=== PATIENT | female | born 1960 | race Two or more races ===

== ENCOUNTER 2016-10-07 04:29 | Emergency (ER) | payer OTHER ==
[~2016-10-07] VITALS: Ht 172.7 cm; Wt 95.3 kg
--- NOTE | 2016-10-07 04:47 | NUR ---
PT BIB SELF WITH SON. COMPLAINS OF TOOTH PAIN 9/10 SINCE 12 AM. PT FACE RED AND SWOLLEN ON RIGHT SIDE. NAUSEA AND VOMITING X4 SINCE 12AM. PT AMBULATORY. GOWNED PT. AWAITING MD ORDER.
[2016-10-07] MEDS ORDERED: KETOROLAC TROMETHAMINE INJ 30 MG/ML VIAL IV ONE (05:00)
[2016-10-07] MEDS ORDERED: methylPREDNISolone SOD SUCC 125 MG/2ML VIAL IV ONE (05:00)
[2016-10-07] MEDS ORDERED: CLINDAMYCIN 600 MG in IV D5W 100 ML IV ONE (05:00)
[2016-10-07] MEDS ORDERED: IV D5W 100 ML IV ONE (05:07)
[2016-10-07] MEDS ORDERED: KETOROLAC TROMETHAMINE 15 MG/ML VIAL ONE (05:07)
[2016-10-07] MEDS ORDERED: CLINDAMYCIN 900 MG/6 ML VIAL ONE (05:07)
[2016-10-07] MEDS ORDERED: IV SET PRIMARY PUMP SET 1 EA INFUS.SET MC ONE ×2 (05:07→05:17)
[2016-10-07] MEDS ORDERED: methylPREDNISolone SOD SUCC 125 MG/2ML VIAL ONE (05:07)
--- NOTE | 2016-10-07 05:16 | NUR ---
started a saline lock on the lac g20, blood drawn and sent to lab.
[2016-10-07] MEDS ORDERED: IV NS 0.9% 1,000 ML ONE (05:17)
[2016-10-07 05:20] LABS: BASOPHILS % (AUTO) 0.2 % (0.0-2.0); EOSINOPHILS # (AUTO) 0.1 /CMM (0.0-0.7); EOSINOPHILS % (AUTO) 1.3 % (0.0-6.0); HEMATOCRIT 34 % (33-45); HEMOGLOBIN 10.8 g/dL (11.5-14.8); LYMPHOCYTES # (AUTO) 0.6 /CMM (0.8-4.8); MEAN CORPUSCULAR HEMOGLOBIN 19 PG (26.0-33.0); MEAN CORPUSCULAR HGB CONC 32 g/dl (31.0-36.0); MEAN CORPUSCULAR VOLUME 60 fL (82-100); MONOCYTES # (AUTO) 0.5 /CMM (0.1-1.30); MONOCYTES % (AUTO) 5.1 % (2.0-12.0); NEUTROPHILS # (AUTO) 8.3 /CMM (1.8-8.9); NEUTROPHILS % (AUTO) 87.4 % (43.0-81.0); PLATELET COUNT (AUTO) 207 /CMM (150-450); RDW COEFFICIENT OF VARIATION 17.1 (11.5-15.0); RED BLOOD CELL COUNT(AUTO) 5.62 MIL/uL (4.0-5.2); WHITE BLOOD COUNT (AUTO) 9.6 K/uL (4.3-11.0)
--- NOTE | 2016-10-07 05:26 | NUR ---
medicated patient as ordered by Dr Sanchez.
[2016-10-07] MEDS ORDERED: IV NS 0.9% 1,000 ML BAG IV ONE (05:30)
[2016-10-07 05:31] LABS: CALCIUM, SERUM 9.1 mg/dL (8.5-10.1); CREATININE 0.9 mg/dL (0.6-1.3); POTASSIUM 3.8 mmol/L (3.5-5.1)
[2016-10-07] MEDS ORDERED: IV NS 0.9% 250 ML IV ONE (05:43)
[2016-10-07] MEDS ORDERED: IOHEXOL-300 100 ML VIAL IV ONE (05:43)
--- NOTE | 2016-10-07 06:00 | NUR ---
patient to ct.
--- NOTE | 2016-10-07 07:02 | NUR ---
Report given to Ron MARCUS for malika.
--- NOTE | 2016-10-07 08:28 | NUR ---
DR NJ AT BEDSIDE FOR REEVAL
[2016-10-07 08:39] VITALS: BP 133/68
--- NOTE | 2016-10-07 09:37 | NUR ---
Patient does not wish to proceed with medical care recommended by Dr. NJ. Patient given information related to possible complications, up to and including , which could occur as a result of leaving the hospital at this time. Patient verbalizes understanding of risks involved due to leaving against medical advice. Patient has signed AMA form.
--- NOTE | 2016-10-07 09:37 | NUR ---
IV removed. Catheter intact and site benign. Pressure and 4x4 applied to site. No bleeding noted.
== END 2016-10-07 09:45 | disposition left against medical advice (07) ==
LOC: ER 04:29
DX: M27.2 Inflammatory conditions of jaws (principal); L03.211 Cellulitis of face; K04.7 Periapical abscess without sinus; I10 Essential (primary) hypertension; K21.9 Gastro-esophageal reflux disease without esophagitis; E11.9 Type 2 diabetes mellitus without complications
CPT/HCPCS: 36415; 70487; 80048; 85025; 96365; 96375; 99285; A4606; J1885; J2930; J3490; J7030; J7050; J7060; Q9967; Z7610

== ENCOUNTER 2021-09-21 13:44 | Inpatient (IN) | payer MEDICAID ==
[~2021-09-21] VITALS: Ht 172.7 cm; Wt 101.2 kg
--- NOTE | 2021-09-21 14:00 | NUR ---
61 yrs female came from home c/o HIGH blood pressure chest pain satrted this morning respirtiom spont and easy pt took here medition this morning
--- NOTE | 2021-09-21 14:05 | NUR ---
seen by DR. FLOREZ
--- NOTE | 2021-09-21 14:10 | NUR ---
EKG DONE AT BED SIDE
[2021-09-21] MEDS ORDERED: OMEP20TA5 PO (14:33)
[2021-09-21] MEDS ORDERED: RANITIDINE PO (14:33)
[2021-09-21] MEDS ORDERED: AMLO-212 PO (14:33)
[2021-09-21] MEDS ORDERED: GABA-532 PO (14:33)
[2021-09-21] MEDS ORDERED: METF-440 PO (14:33)
[2021-09-21] MEDS ORDERED: LINA5TAB PO (14:33)
[2021-09-21] MEDS ORDERED: DICY10CA13 PO (14:33)
[2021-09-21 15:10] LABS: BASOPHILS % (AUTO) 0.6 % (0.0-2.0); EOSINOPHILS % (AUTO) 7.5 % (0.0-6.0); HEMATOCRIT 30 % (33-45); HEMOGLOBIN 9.4 g/dL (11.5-14.8); LYMPHOCYTES # (AUTO) 1.3 K/uL (0.8-4.8); LYMPHOCYTES % (AUTO) 19.3 % (20.0-44.0); MEAN CORPUSCULAR HGB CONC 31 g/dl (31.0-36.0); MEAN CORPUSCULAR VOLUME 58 fL (82-100); MONOCYTES # (AUTO) 0.6 K/uL (0.1-1.30); MONOCYTES % (AUTO) 8.1 % (2.0-12.0); NEUTROPHILS # (AUTO) 4.5 K/uL (1.8-8.9); NEUTROPHILS % (AUTO) 64.5 % (43.0-81.0); PLATELET COUNT (AUTO) 247 K/uL (150-450); RED BLOOD CELL COUNT(AUTO) 5.16 MIL/uL (4.0-5.2); WHITE BLOOD COUNT (AUTO) 6.9 K/uL (4.3-11.0)
--- NOTE | 2021-09-21 15:15 | NUR ---
DR. VIKKI DE LEON ABOUT BP 177/103 MMHG HR 77 B/MIN DINESES CHEST PAIN
[2021-09-21 15:31] LABS: ALANINE AMINOTRANSFERASE 15 U/L (12-78); ALBUMIN 3.4 g/dL (3.4-5.0); ALKALINE PHOSPHATASE 63 U/L (46-116); ASPARTATE AMINOTRANSFERASE 6 U/L (15-37); BILIRUBIN,DIRECT 0.1 mg/dL (0.0-0.2); BILIRUBIN,TOTAL 0.3 mg/dL (0.2-1.0); CALCIUM, SERUM 12.3 mg/dL (8.5-10.1); CARBON DIOXIDE 29 mmol/L (21-32); CHLORIDE 105 mmol/L (98-107); CREATININE 1.2 mg/dL (0.6-1.3); GLUCOSE 101 mg/dL (74-106); POTASSIUM 3.8 mmol/L (3.5-5.1); SODIUM SERUM 141 mmol/L (136-145); TOTAL PROTEIN, SERUM 8.1 g/dL (6.4-8.2); UREA NITROGEN, BLOOD 18 mg/dL (7-18)
[2021-09-21] MEDS ORDERED: ASPIRIN 325 MG TABLET ONE (15:46)
[2021-09-21] MEDS ORDERED: CLONIDINE HCL 0.1 MG TABLET ONE (15:46)
[2021-09-21] MEDS ORDERED: CLONIDINE HCL 0.1 MG TABLET PO ONE (16:00)
[2021-09-21] MEDS ORDERED: ASPIRIN 81 MG TAB.CHEW PO ONE (16:00)
--- NOTE | 2021-09-21 16:09 | NUR ---
COVED SWAB SENT TO LAB
--- NOTE | 2021-09-21 17:18 | NUR ---
closly observe pt vs respondes to tx
--- NOTE | 2021-09-21 18:30 | NUR ---
raghaveses chest pain or sob wating for room to be admited
--- NOTE | 2021-09-21 19:28 | NUR ---
David of to heydi shaw
--- NOTE | 2021-09-21 21:32 | NUR ---
FOOD OFFERED TO PATIENT, TOLERATING WELL. VSS
--- NOTE | 2021-09-21 22:05 | NUR ---
PT AMBULATORY TO RESTROOM WITH STEADY GAIT. ADLS DONE
--- NOTE | 2021-09-21 22:16 | NUR ---
RECEIVED VERBAL ORDERS FROM DR. BAXTER. VIA PHONE CALL. SEE PHYSICIAN'S ORDER SHEET FORM
[2021-09-21] MEDS ORDERED: AMLODIPINE BESYLATE 5 MG TABLET ONE (23:26)
--- NOTE | 2021-09-21 23:28 | NUR ---
BP 169 / 101. HR 64. RECEIVED VERBAL ORDERS FROM DR. BAXTER FOR AMLODIPINE 5MG PO. ADMINISTERED AND WILL REASSESS BP IN 30 MINUTES. Addendum: 09/21/21 at 2330 by JUNAID AMLODIPINE 5MG PO. BP 169 / 101. HR 64. RECEIVED VERBAL ORDERS FROM DR. BAXTER FOR AMLODIPINE 5MG PO. ADMINISTERED AND WILL REASSESS BP IN 30 MINUTES.
--- NOTE | 2021-09-22 | NUR ---
PT ON NPO DIET EXCEPT MEDS PER DR. BAXTER VERBAL ORDER UNTIL FURTHER ORDER.
--- NOTE | 2021-09-22 04:37 | NUR ---
TROPONIN @ 0200 Q4H X2 MISSED. NOT ABLE TO PUT ORDERS IN UNDER DR. BAXTER'S NAME. LAB AND CHARGE NURSE AWARE.
--- NOTE | 2021-09-22 07:25 | NUR ---
RECIVED PT FROM SAV MARCUS pt asleepy no chest pain
[2021-09-22] MEDS ORDERED: IOHEXOL-350 100 ML VIAL IV ONE ×2 (07:29→12:56)
[2021-09-22] MEDS ORDERED: IV NS 0.9% 250 ML IV ONE ×2 (07:29→12:57)
[2021-09-22] MEDS ORDERED: CT SWABBABLE VALVE TRANS SET 1 EA INFUS.SET MC ONE ×2 (07:29→12:57)
--- NOTE | 2021-09-22 07:47 | NUR ---
TO CAT VIA KENNY LOPEZ NPO
--- NOTE | 2021-09-22 10:27 | NUR ---
ROEL WH[facility] [phone] REQUESTING FACE SHEET TO [phone] OR [phone].
--- NOTE | 2021-09-22 10:44 | NUR ---
kalli for telmetry be
--- NOTE | 2021-09-22 11:25 | NUR ---
DR. SEYMOUR HERE SEE AND EXAMIN PT ORDER WAS GIVEN
[2021-09-22] MEDS ORDERED: FUROSEMIDE 100 MG/10 ML VIAL IV ONE (11:30)
[2021-09-22] MEDS ORDERED: FUROSEMIDE 100 MG/10 ML VIAL ONE (11:54)
[2021-09-22] MEDS ORDERED: AMLODIPINE BESYLATE 5 MG TABLET ONE (11:54)
[2021-09-22 12:15] LABS: THYROID STIMULATING HORMONE 1.626 uIU/mL (0.358-3.74)
[2021-09-22] MEDS: AMLODIPINE BESYLATE 5 MG TABLET PO SCH (12:17)
[2021-09-22] MEDS: LINAGLIPTIN 5 MG TABLET PO SCH (12:26)
--- NOTE | 2021-09-22 12:50 | NUR ---
TO CT SCAN OF HEART ( ANGO ) GRAM
[2021-09-22] MEDS ORDERED: NITROGLYCERIN 0.4 MG/TAB BOTTLE ONE (12:57)
[2021-09-22] MEDS ORDERED: METOPROLOL TARTRATE INJ 5 MG/5 ML AMPUL ONE (12:57)
[2021-09-22] MEDS ORDERED: NITROGLYCERIN 0.4 MG/TAB BOTTLE SL ONE (13:00)
--- NOTE | 2021-09-22 13:04 | NUR ---
report given to Marianela MARCUS to continue care.
--- NOTE | 2021-09-22 13:05 | NUR ---
RN NOTES RECEIVED REPORT FROM ER BY TIM AT [id number]
[2021-09-22] MEDS: METOPROLOL TARTRATE INJ 5 MG/5 ML AMPUL IVP PRN ×4 (13:08→13:23)
--- NOTE | 2021-09-22 13:32 | NUR ---
CTA PROCEDURE DONE. PT IS AAOX4, NOT IN RESPIRATORY DISTRESS, V/S STABLE, KEPT RESTED AND COMFORTABLE. REPORT GIVEN TO AMRIT KEARNEY FOR JOSE.
--- NOTE | 2021-09-22 13:45 | NUR ---
PT BACK FROM CT HEART VIA GARNY STABLE CONDITION NO CP NO SOB
--- NOTE | 2021-09-22 13:49 | NUR ---
TO ROOM 323 - T STABLE VS STABLE CONDITION AWAKE AND ALERT
--- NOTE | 2021-09-22 13:50 | NUR ---
TRANSPORTATION PLANNING ENGINEER NOTES RECEIVED PATIENT FROM ER AT 1351. PATIENT ALERT AND ORIENTED TIMES 4. NO PAIN NOTED . NO SOB NOTED. IV SITE ON THE RIGHT AC INTACT. ABLE TO MAKE NEEDS KNOWN. ROMANIAN SPEAKER. ON TELE MONITOR READING SR. AT HER BED SIDE. ALL THE INFORMATION OBTAINED FROM . ALL NEEDS ATTENDED. BED LOCKED IN THE LOWEST POSITION. CALL LIGHT AND TABLE IN REACH. WILL CONTINUE TO MONITOR.
[2021-09-22] MEDS: GABAPENTIN 100 MG CAPSULE PO SCH ×2 (14:14→17:02)
[2021-09-22] MEDS: ACETAMINOPHEN 325 MG TABLET PO PRN (15:38)
[2021-09-22] MEDS: METOPROLOL SUCCINATE 25 MG TAB.SR.24H PO SCH (15:39)
[2021-09-22] MEDS ORDERED: METO25TA4 PO (15:47)
[2021-09-22] MEDS ORDERED: METF-440 PO (15:47)
[2021-09-22 16:20] VITALS: BP 149/63
--- NOTE | 2021-09-22 19:16 | NUR ---
EVALUATION ANALYST OPENING NOTES RECEIVED PATIENT LYING IN BED, HOB ELEVATED AT 45 DEGREES. A/O X4. SPEAKS SPANISH AND A LITTLE BIT OF [place]. ON BEDSIDE AND TRANSLATES FOR THE PATIENT. BREATHING EVEN AND NON-LABORED ON ROOM AIR. C/O OF HEADACHE. NOT IN APPARENT DISTRESS. HAS RIGHT ANTECUBITAL IV ACCESS #20G AND SALINE LOCKED. NO S/S OF INFILTRATION NOTED. SAFETY PRECAUTIONS IN PLACE. WILL CONTINUE PLAN OF CARE. Addendum: 09/22/21 at 1932 by October STORM RN ON TELE MONITOR READING SINUS RHYTHM AT 71 BPM.
--- NOTE | 2021-09-22 19:30 | NUR ---
CUFF STITCHER CLOSING NOTES PATIENT WAS SUPPOSED TO BE DISCHARGED BUT DR BAXTER CALLED AND STATED PATIENT WILL STAY IN THE HOSPITAL. PATIENT ALERT AND ORIENTED TIMES 4. NO PAIN NOTED. NO SOB NOTED. NO DISTRESS NOTED. ALL NEEDS ATTENDED. ALL DUE MEDS GIVEN ORDERED. AT HER BED SIDE. ON TELE MONITOR. SR NOTED. BED LOCKED IN THE LOWEST POSITION. CALL LIGHT AND TABLE IN REACH. WILL ENDORSE FOR JOSE.
--- NOTE | 2021-09-22 19:40 | NUR ---
ENTERTAINER & COMIC NOTES OBTAINED ORDER FROM DR. MENDOZA FOR ACCUCHECK SINCE PT HAS HX OF DM. SHE ORDERED MILD SS. NOTED AND CARRIED OUT.
[2021-09-22 20:00] VITALS: BP_SYST 127; BP_SYST 158; BP_DIAS 65; BP_DIAS 97
--- NOTE | 2021-09-22 21:18 | NUR ---
POCKET MACHINE OPERATOR NOTES RECEIVED A CALL FROM DORIAN ENGLISH) OF [facility] F/U ON PT'S CONDITION.
--- NOTE | 2021-09-22 21:22 | NUR ---
CORPORATE AFFAIRS MANAGER NOTES PT C/O PRESSURE-LIKE CHEST PAIN AND NAUSEA. DR. MENDOZA NOTIFIED. NEW ORDER NOTED AND CARRIED OUT: - ZOFRAN 6 MG IVP Q6H PRN FOR NAUSEA - MORPHINE 2 MG IVP Q4H PRN FOR PAIN
[2021-09-22] MEDS ORDERED: MORPHINE SULFATE INJ 2 MG/ML DISP.SYRIN IV PRN (21:30)
[2021-09-22] MEDS ORDERED: DEXTROSE 50%-WATER 50 ML DISP.SYRIN IV PRN (22:00)
[2021-09-22] MEDS: BLOOD SUGAR DIAGNOSTIC 1 EACH STRIP IN SCH (22:03)
[2021-09-22] MEDS: ONDANSETRON HCL/PF 4 MG/2 ML VIAL IV PRN (22:05)
--- NOTE | 2021-09-22 22:08 | NUR ---
HYPERBARIC TECHNOLOGIST NOTES PT C/O PRESSURE-LIKE PAIN ON HER CHEST AND HEADACHE. 12/14. ADMINISTER PRN MORPHINE SO4. TOLERATED WELL.
[2021-09-22 23:58] VITALS: BP 119/82
[2021-09-23 04:00] VITALS: BP 144/74
[2021-09-23] MEDS: ACETAMINOPHEN 325 MG TABLET PO PRN ×2 (06:43→19:46)
[2021-09-23] MEDS: BLOOD SUGAR DIAGNOSTIC 1 EACH STRIP IN SCH ×4 (06:43→21:35)
--- NOTE | 2021-09-23 07:09 | NUR ---
KILN FURNITURE SAW TENDER CLOSING NOTES PT LYING IN BED ASLEEP. EASY TO AROUSE. A/O X4. SPEAKS YAK[place], UNDERSTANDS A LITTLE BIT OF [place]ENI. BREATHING EVEN AND NON-LABORED ON ROOM AIR. C/O CHEST PAIN AND HEADACHE, PRN TYLENOL GIVEN. ON TELE MONITOR READING SINUS RHYTHM AT 72 BPM. HAS RIGHT ANTECUBITAL IV ACCESS #20G AND SALINE LOCKED. INTACT, PATENT AND FLUSHING. ALL NEEDS ATTENDED. KEPT DRY AND COMFORTABLE. SAFETY PRECAUTIONS IN PLACE: BED LOW AND LOCKED, SIDE RAILS UP X2, CALL LIGHT WITHIN REACH.
--- NOTE | 2021-09-23 07:30 | NUR ---
TERMINAL OPERATIONS MANAGER OPENING NOTES RECEIVED PATIENT LYING IN BED, HOB ELEVATED AT 45 DEGREES. A/O X4. CHINESE SPEAKING ABLE TO SPEAK A LITTLE [place]. ON BEDSIDE AND TRANSLATES FOR THE PATIENT. BREATHING EVEN AND NON-LABORED ON ROOM AIR AND TOLERATING WELL . ON TELE MONITOR WITH CURRENT READING SINUS RHYTHM 88 HAS RIGHT ANTECUBITAL IV ACCESS #20G AND SALINE LOCKED. NO S/S OF INFILTRATION NOTED. SAFETY PRECAUTIONS MAINTAINED BED IN LOCKED AND IN LOWEST POSITION. CALL LIGHT WITHIN EASY REACH FOR HELP/ASSISTANCE.
[2021-09-23 08:00] VITALS: BP 133/66
[2021-09-23] MEDS: LEVOFLOXACIN (250MG) 250 MG TABLET PO SCH (08:49)
[2021-09-23] MEDS: AMLODIPINE BESYLATE 5 MG TABLET PO SCH (08:49)
[2021-09-23] MEDS: LINAGLIPTIN 5 MG TABLET PO SCH (08:49)
[2021-09-23] MEDS: PANTOPRAZOLE 40 MG TABLET.DR PO SCH (08:49)
[2021-09-23] MEDS: GABAPENTIN 100 MG CAPSULE PO SCH ×3 (08:49→17:04)
[2021-09-23] MEDS: VALSARTAN 80 MG TABLET PO SCH (08:51)
[2021-09-23] MEDS: ONDANSETRON HCL/PF 4 MG/2 ML VIAL IV PRN (10:30)
--- NOTE | 2021-09-23 11:30 | NUR ---
RN NOTES: PATIENT HAD EPISODES OF NAUSEA AND VOMITING THIS MORNING, ZOFRAN GIVEN VIA IV AND PATIENT VERBALIZED RELIEF AND ZOFRAN IS EFFECTIVE. PATIENT NO COMPLAIN OF ANY PAIN.
[2021-09-23] MEDS: IV 1/2NS 1000 ML 1,000 ML IV PRN ×2 (11:43→21:35)
[2021-09-23] MEDS: INSULIN REGULAR, HUMAN 100 UNIT/ML 3 ML VIAL SQ PRN ×3 (12:16→21:37)
[2021-09-23] MEDS: METOPROLOL SUCCINATE 25 MG TAB.SR.24H PO SCH (12:27)
[2021-09-23 16:00] VITALS: BP 121/73
--- NOTE | 2021-09-23 19:30 | NUR ---
BUSINESS ANALYTICS INTERN CLOSING NOTES PATIENT IN BED.HOB ELEVATED AT 45 DEGREES. A/O X4. IS IN BEDSIDE. BREATHING EVEN AND NON-LABORED ON ROOM AIR AND TOLERATING WELL. ON TELE MONITOR WITH CURRENT READING SINUS RHYTHM 85 HAS RIGHT ANTECUBITAL IV ACCESS #20G , WITH IV OF NS 0.45%.1L X 125ML/HR SAFETY PRECAUTIONS MAINTAINED BED IN LOCKED AND IN LOWEST POSITION. CALL LIGHT WITHIN EASY REACH FOR HELP/ASSISTANCE. ENDORSED TO SALES PROJECT ENGINEER NURSE FOR CONTINUITY OF CARE.
--- NOTE | 2021-09-23 19:30 | NUR ---
MS RN OPENING NOTES RECEIVED PT LYING IN BED AWAKE. A/O X4. ON BEDSIDE. ABLE TO VERBALIZE NEEDS. C/O PRESSURE-LIKE PAIN ON HER CHEST AND A HEADACHE, REQUESTED FOR TYLENOL. NO SOB OR NOTED. TOLERATING ROOM AIR WELL. HAS RIGHT ANTECUBITAL IV ACCESS #20G WITH 0.45% NS RUNNING AT 125 ML/HR. NO S/S OF INFILTRATION NOTED. SAFETY PRECAUTIONS IN PLACE. WILL CONTINUE PLAN OF CARE.
--- NOTE | 2021-09-23 19:46 | NUR ---
MS RN NOTES ADMINISTERED PRN TYLENOL 650 MG PER PT REQUEST R/T CHEST PAIN AND HEADACHE. TOLERATED WELL.
[2021-09-23 20:00] VITALS: BP 134/66
--- NOTE | 2021-09-23 21:37 | NUR ---
MS RN NOTES PT REFUSED INSULIN COVERAGE. SHE CALLED HER TO EXPLAIN. PER , THIS IS NORMAL FOR HER AND SHE ONLY NEEDS TO TAKE HER METFORMIN EVERYDAY. EXPLAINED RISKS AND BENEFITS, OFFERED X3, STILL REFUSED.
--- NOTE | 2021-09-24 07:00 | NUR ---
MS RN NOTES NO INSULIN COVERAGE GIVEN. BS 106
--- NOTE | 2021-09-24 07:19 | NUR ---
MS RN OPENING NOTES RECEIVED PT IN BED AWAKE. A/O X4, WITH ON BEDSIDE. ABLE TO VERBALIZE NEEDS. PATIENT IS ON ROOM AIR WITH EQUAL AND UNLABORED BREATHING, NO SIGNS AND SYMPTOMS OF DISTRESS NOTED. NO COMPLAIN OF PAIN AT THIS TIME. WITH IV ACCESS ON RIGHT AC G 20 WITH ONGOING IVF OF NS RUNNING AT 125ML/HR. SAFETY MEASURES IN PLACE WITH BED IN LOWEST LOCKED POSITION, SIDERAILS RAISED. ON MODERATE TO HIGH BACK REST. CALL LIGHT WITHIN REACH AT ALL TIMES.
[2021-09-24] MEDS: BLOOD SUGAR DIAGNOSTIC 1 EACH STRIP IN SCH (07:26)
--- NOTE | 2021-09-24 07:30 | NUR ---
MS RN CLOSING NOTES PT LYING IN BED AWAKE. ON BEDSIDE. A/O X4. TRANSFERRED TO A DIFFERENT ROOM FOR AIRBORNE AND DROPLET ISOLATION R/T PENDING TB TEST RESULTS. FAMILY WAS UPSET, I EXPLAINED TO THE DAUGHTER WHY WE NEED TO TRANSFER HER. DAUGHTER SPOKE TO THE CN WELL. PT HAS NO C/O PAIN OR DISCOMFORT AT THIS TIME. BREATHING EVEN AND NON-LABORED ON ROOM AIR. HAS RIGHT ANTECUBITAL IV ACCESS #20G WITH 0.45% NS RUNNING AT 125 ML/HR. INTACT, PATENT AND FLUSHING. ALL NEEDS ATTENDED. KEPT DRY AND COMFORTABLE. SAFETY PRECAUTIONS IN PLACE: BED LOW AND LOCKED, SIDE RAILS UP X2, CALL LIGHT WITHIN REACH.
[2021-09-24 07:39] LABS: CALCIUM, SERUM 11.1 mg/dL (8.5-10.1); CREATININE 1.6 mg/dL (0.6-1.3); POTASSIUM 3.6 mmol/L (3.5-5.1)
[2021-09-24 08:00] VITALS: BP 146/83
[2021-09-24] MEDS: GABAPENTIN 100 MG CAPSULE PO SCH (09:11)
[2021-09-24] MEDS: LEVOFLOXACIN (250MG) 250 MG TABLET PO SCH (09:11)
[2021-09-24] MEDS: VALSARTAN 80 MG TABLET PO SCH (09:11)
[2021-09-24 09:12] VITALS: BP 146/83
[2021-09-24] MEDS: LINAGLIPTIN 5 MG TABLET PO SCH (09:12)
[2021-09-24] MEDS: AMLODIPINE BESYLATE 5 MG TABLET PO SCH (09:12)
[2021-09-24] MEDS: PANTOPRAZOLE 40 MG TABLET.DR PO SCH (09:12)
--- NOTE | 2021-09-24 09:35 | NUR ---
MS RN NOTE SEEN BY DR. HARRIS WITH ORDER TO DISCHARGE PATIENT. HEALTH TEACHING DONE REGARDING DISCHARGE AND DISCHARGE INSTRUCTIONS TO PATIENT AND . VERBALIZED UNDERSTANDING AND APPRECIATION. COMFORT MEASURES PROVIDED. IN STABLE CONDITION.
--- NOTE | 2021-09-24 10:35 | NUR ---
MS RN NOTE PATIENT DISCHARGED ORDERED. IV ACCESS REMOVED AND COVERED WITH DRY DRESSING. PROCEDURE TOLERATED WELL. PATIENT ACCOMPANIED TO LOBBY BY NURSE AND TRANSPORTED ON A WHEELCHAIR. IN STABLE CONDITION. ENDORSED ACCORDINGLY.
== END 2021-09-24 10:50 | disposition home or self-care (01) | DRG 199 ==
LOC: ER 13:44 → TRANSITION 22:47 → TELE 09-22 13:04 → MED 09-23 09:00
PROVIDERS: ADMIT Internal Medicine; ATTEND Internal Medicine
DX: I16.1 Hypertensive emergency (principal); I50.21 Acute systolic (congestive) heart failure; D72.10 Eosinophilia, unspecified; E11.9 Type 2 diabetes mellitus without complications; D50.9 Iron deficiency anemia, unspecified; D56.9 Thalassemia, unspecified; I11.0 Hypertensive heart disease with heart failure; E86.0 Dehydration; E66.9 Obesity, unspecified; I25.10 Atherosclerotic heart disease of native coronary artery without angina pectoris; E83.52 Hypercalcemia; K21.9 Gastro-esophageal reflux disease without esophagitis; Z20.822 Contact with and (suspected) exposure to COVID-19; Z79.84 Long term (current) use of oral hypoglycemic drugs; Z79.899 Other long term (current) drug therapy; R91.8 Other nonspecific abnormal finding of lung field; K44.9 Diaphragmatic hernia without obstruction or gangrene; Z82.49 Family history of ischemic heart disease and other diseases of the circulatory system; R10.13 Epigastric pain
CPT/HCPCS: 36415; 71045-TC; 75574; 80048-TC; 80076-TC; 82310-TC; 82962-TC; 83540-TC; 83970; 84443-TC; 84484-TC; 85025-TC; 86480; 87081-TC; 93307-TC; C9803; G0378; J1815; J1940; J2270; J2405; J3490; J7050; Q9967

== ENCOUNTER 2024-02-21 19:07 | Emergency (ER) | payer MEDICAID ==
[~2024-02-21] VITALS: Ht 160 cm; Wt 99.8 kg
[~2024-02-21 19:07] MED LIST: AMLO-212 PO; DICY10CA13 PO; GABA-532 PO; LINA5TAB PO; METF-440 PO; METO25TA4 PO; OMEP20TA5 PO; RANITIDINE PO
[2024-02-21 20:08] LABS: BASOPHILS % (AUTO) 0.5 % (0.0-2.0); EOSINOPHILS # (AUTO) 0.3 K/uL (0.0-0.7); EOSINOPHILS % (AUTO) 3.1 % (0.0-6.0); HEMATOCRIT 35 % (33-45); HEMOGLOBIN 11.1 g/dL (11.5-14.8); LYMPHOCYTES # (AUTO) 1.3 K/uL (0.8-4.8); LYMPHOCYTES % (AUTO) 15.6 % (20.0-44.0); MEAN CORPUSCULAR HEMOGLOBIN 18 PG (26.0-33.0); MEAN CORPUSCULAR HGB CONC 31 g/dl (31.0-36.0); MEAN CORPUSCULAR VOLUME 58 fL (82-100); MONOCYTES # (AUTO) 0.6 K/uL (0.1-1.30); MONOCYTES % (AUTO) 6.8 % (2.0-12.0); NEUTROPHILS # (AUTO) 6.2 K/uL (1.8-8.9); PLATELET COUNT (AUTO) 257 K/uL (150-450); RED BLOOD CELL COUNT(AUTO) 6.09 MIL/uL (4.0-5.2); RED CELL DISTRIBUTION WIDTH 17.9 % (11.5-15.0); WHITE BLOOD COUNT (AUTO) 8.4 K/uL (4.3-11.0)
[2024-02-21 20:19] LABS: CARBON DIOXIDE 29 mmol/L (21-32); CHLORIDE 106 mmol/L (98-107); CREATININE 0.9 mg/dL (0.6-1.3); GLUCOSE 116 mg/dL (74-106); POTASSIUM 3.9 mmol/L (3.5-5.1); SODIUM SERUM 140 mmol/L (136-145); UREA NITROGEN, BLOOD 15 mg/dL (7-18)
[2024-02-21 23:22] VITALS: BP 160/81; TEMP 98.6; O2SAT 98
== END 2024-02-21 23:22 | disposition left against medical advice (07) ==
LOC: ER 19:11
DX: R07.89 Other chest pain (principal); I10 Essential (primary) hypertension; E78.5 Hyperlipidemia, unspecified; E11.9 Type 2 diabetes mellitus without complications; Z20.822 Contact with and (suspected) exposure to COVID-19; Z79.84 Long term (current) use of oral hypoglycemic drugs; Z79.899 Other long term (current) drug therapy
CPT/HCPCS: 36415; 71045-TC; 80048-TC; 84484-TC; 85025-TC